=== PATIENT | male | born 1990 | race Caucasian/White ===

== ENCOUNTER 2017-07-05 19:13 | Emergency (ER) | payer SELFPAY ==
[~2017-07-05] VITALS: Ht 177.8 cm; Wt 98.0 kg
[2017-07-05 19:14] VITALS: BP 152/88; PULSE 110; RESP 16; TEMP 98.4; O2SAT 96
--- NOTE | 2017-07-05 20:54 | PD ---
Physical Exam Date Seen by Provider: Jul 05, 2017 Time Seen by Provider: 20:52 Narrative 27 y/o male c/o chest tightness for the past several days. C/O MCKEON and Chills. Coughing but non-productive. Has Generalized weakness. Denies Wheezing. Pain in Lungs rated as 7/10. Vital signs reviewed. Patient stable. Awaiting Bed placement. Data Data Last Documented VS Vital Signs Date Time Temp Pulse Resp B/P Pulse Ox O2 Delivery O2 Flow Rate FiO2 07/05/17 19:14 98.4 110 16 152/88 96 Room Air [facility] Medical Record Reviewed: Yes Supervised Visit with YOUNG: Yes Condition: Stable Chin Bojorquez Jul 05, 2017 20:54
--- NOTE | 2017-07-05 21:50 | RADRPT ---
EXAM DATE/TIME: 07/05/2017 21:29 [facility] COMPARISON: No previous studies available for comparison. INDICATIONS : Shortness of breath. MEDICAL HISTORY : None. SURGICAL HISTORY : None. ENCOUNTER: Initial ACUITY: 1 day PAIN SCORE: 7/10 LOCATION: Bilateral chest FINDINGS: PA and lateral views of the chest demonstrate the lungs to be symmetrically aerated without evidence of mass, infiltrate or effusion. Linear atelectasis at the bases. The cardiomediastinal contours are unremarkable. Osseous structures are intact. CONCLUSION: 1. No acute findings. Minimal linear atelectasis at the bases. Kalia Lora MD on July 05, 2017 at 21:48 Board Certified Radiologist. This report was verified electronically.
--- NOTE | 2017-07-05 23:12 | PD ---
HPI Chief Complaint: Respiratory Symptoms Time Seen by Provider: 22:57 Travel History International Travel<30 days: No Contact w/Intl Traveler<30days: No Traveled to known affect area: No History of Present Illness HPI The 27 year-old woman who presents emergent department complaining of having a hard time breathing ongoing for the past month or so. Worse over the past 2 days. He says some cough, but no URI symptoms, no fevers, no leg swelling. He did recently move from [place]. He's been down for about a month or so. He drove in a car from [place]. Symptoms started about that time. He said this dry cough with shortness of breath. Not much chest pain. No fevers. No URI symptoms. No other complaints. History Past Medical History Medical History: Denies Significant Hx Tetanus Vaccination: Unknown Influenza Vaccination: No Social History Alcohol Use: Yes (once a week ) Tobacco Use: Yes (1/2 a week ) Allergies-Medications (Allergen,Severity, Reaction): Coded Allergies: No Known Allergies (Unverified , 07/05/17) Reported Meds & Prescriptions Reported Meds & Active Scripts Active No Active Prescriptions or Reported Medications Review of Systems Except as stated in HPI: all other systems reviewed are Neg Physical Exam Narrative GENERAL: Well-appearing 27, no acute distress. SKIN: Focused skin assessment warm/dry. HEAD: Atraumatic. Normocephalic. EYES: Pupils equal and round. No scleral icterus. No injection or drainage. ENT: No nasal bleeding or discharge. Mucous membranes pink and moist. NECK: Trachea midline. No JVD. CARDIOVASCULAR: Regular rate and rhythm. No murmur appreciated. RESPIRATORY: No accessory muscle use. Clear to auscultation. Breath sounds equal bilaterally. GASTROINTESTINAL: Abdomen soft, non-tender, nondistended. Hepatic and splenic margins not palpable. MUSCULOSKELETAL: No obvious deformities. No clubbing. No cyanosis. No edema. NEUROLOGICAL: Awake and alert. No obvious cranial nerve deficits. Motor grossly within normal limits. Normal speech. PSYCHIATRIC: Appropriate mood and affect; insight and judgment normal. Data Data Last Documented VS Vital Signs Date Time Temp Pulse Resp B/P Pulse Ox O2 Delivery O2 Flow Rate FiO2 07/05/17 22:35 85 18 99 Room Air 07/05/17 19:14 98.4 152/88 Orders Chest, Pa & Lat (07/05/17 ) Ct Pulmonary Angiogram (07/05/17 ) Iohexol 350 Inj (Omnipaque 350 Inj) (07/06/17 00:13) Azithromycin (Zithromax) (07/06/17 00:45) MDM Medical Decision Making Medical Screen Exam Complete: Yes Emergency Medical Condition: Yes Interpretation(s) Chest x-ray negative Differential Diagnosis Bronchitis, gastritis, reflux, asthma, PE, other Narrative Course Medical decision-making 27-year-old woman presents emergent arm with shortness of breath and cough, starting after a long car ride, once he moved to [place]. It's been a month or so now making the d-dimer question will utility. I think this is probably allergies are he/emitted be related. Difficult to completely exclude PE. Patient had an elevated heart rate when he first presented. We'll check CT pulmonary angiogram, discharge if negative. FINAL: CT pulmonary injury and shows pneumonia and some lymphadenopathy. Diagnosis Primary Impression: Pneumonia Additional Instructions: Take antibiotics as prescribed. Return to the emergency department for any new or worsening symptoms. Med/Other Pt SpecificInfo: Prescription(s) given Scripts Azithromycin 250 Mg [id number] Mg PO DAILY 4 Days Prov:Los Her MD 07/06/17 Disposition: 01 DISCHARGE HOME Condition: Stable Los Her MD Jul 05, 2017 23:12
[2017-07-06] MEDS ORDERED: IOHEXOL 350 MG/ML 10 ML VIAL (for RAD DIAG) IV ONE (00:13)
--- NOTE | 2017-07-06 00:18 | RADRPT ---
EXAM DATE/TIME: 07/06/2017 00:03 [facility] COMPARISON: CHEST PA & LAT, July 05, 2017, 21:29. INDICATIONS : Shortness of breath with lethargy. IV CONTRAST: 80 cc Omnipaque 350 (iohexol) IV RADIATION DOSE: 19.61 CTDIvol (mGy) MEDICAL HISTORY : None SURGICAL HISTORY : None. ENCOUNTER: Initial ACUITY: 2 weeks PAIN SCALE: 0/10 LOCATION: Bilateral chest TECHNIQUE: Volumetric scanning of the chest was performed using a pulmonary embolism protocol MIP images were re constructed. Using automated exposure control and adjustment of the mA and/or kV according to patien t size, radiation dose was kept as low as reasonably achievable to obtain optimal diagnostic quality images. DICOM format image data is available electronically for review and comparison. Follow-up recommendations for incidentally detected pulmonary nodules are based at a minimum on nodul e size and patient risk factors according to Fleischner Society Guidelines. FINDINGS: There is right lower lobe consolidation identified. 2.1 cm short axis right hilar adenopathy, and sub carinal adenopathy up to 2 cm in short axis dimension noted. There is no aneurysm. There is no eviden ce for pulmonary embolus. No pleural or pericardial effusions. Adrenal glands are normal. CONCLUSION: 1. Right lower lobe pneumonia and mediastinal and right hilar adenopathy. 2. No evidence for pulmonary embolism. Chuck Mcintosh MD on July 06, 2017 at 0:14 Board Certified Radiologist. This report was verified electronically.
[2017-07-06] MEDS ORDERED: AZIT250T3 PO (00:43)
[2017-07-06] MEDS ORDERED: AZITHROMYCIN 250 MG TAB PO ONE (00:45)
[2017-07-06 00:56] VITALS: BP 140/80; PULSE 99; RESP 22; O2SAT 96
== END 2017-07-06 01:00 | disposition home or self-care (01) ==
LOC: NEPD 19:13
DX: J18.9 Pneumonia, unspecified organism (principal); F10.10 Alcohol abuse, uncomplicated; F17.290 Nicotine dependence, other tobacco product, uncomplicated
CPT/HCPCS: 71020; 71275; 99285; Q9967